=== PATIENT | female | born 1980 | race Caucasian/White ===

== ENCOUNTER 2016-10-29 22:58 | Emergency (ER) | payer BC, OTHER ==
[~2016-10-29] VITALS: Ht 170.2 cm; Wt 89.5 kg
[~2016-10-29 22:58] MED LIST: LRT5 PO; PENI-82 PO
[2016-10-29 23:01] VITALS: TEMP 37; Ht 170.2 cm; Wt 89.5 kg
[2016-10-29] MEDS ORDERED: MoRPHine SULFATE 4 MG/ML 1 ML CARP\\VIAL IV STA (23:16)
[2016-10-29] MEDS ORDERED: ONDANSETRON INJ 2 MG/ML 2 ML VIAL IV STA (23:16)
[2016-10-29] MEDS ORDERED: SODIUM CHLORIDE 0.9% 1000ML 1,000 ML IV STA ×2 (23:16)
[2016-10-29 23:33] VITALS: O2SAT 97
[2016-10-29 23:41] LABS: BASO % 0.2 %; BASO ABS # 0.04 K/uL (0-0.2); COMPLETE YES; EOS % 0.5 %; HEMATOCRIT 42.4 % (37-47); IG% 0.4 %; LYMPH % 19.6 %; LYMPH ABS # 3.62 K/uL (1.2-3.4); MEAN CELL VOLUME 89.5 fL (80-100); MEAN CORPUSCULAR HEMOGLOBIN 30.4 pg (25-34); MEAN PLATELET VOLUME 9.9 fL (7.4-10.4); MONO % 8.4 %; NEUT % 70.9 %; PLATELET COUNT 325 K/uL (130-400); RED BLOOD COUNT 4.74 M/uL (4.2-5.4); WHITE BLOOD COUNT 18.49 K/uL (4.8-10.8)
[2016-10-30 00:01] LABS: BUN/CREATININE RATIO 6.9 (10-20); CALCIUM 9.1 mg/dl (8.5-10.1); POTASSIUM 3.8 mmol/L (3.5-5.1)
[2016-10-30] MEDS ORDERED: OPTIRAY 320 IV PRN (00:45)
[2016-10-30] MEDS ORDERED: HYDROmorphone INJ 1 MG/ML SYR IV STA (00:49)
[2016-10-30 01:55] LABS: URINE APPEARANCE CLEAR (CLEAR); URINE BILIRUBIN NEG (NEG); URINE COLOR YELLOW; URINE NITRITE NEG (NEG); URINE SPECIFIC GRAVITY 1.019 (1.000-1.030); UROBILINOGEN NEG (NEG); ZZUR CULT IF INDIC CLEAN CATCH NO
[2016-10-30 02:09] LABS: MANUAL MICROSCOPIC REQUIRED? NO; REVIEW REQ? NO
--- NOTE | 2016-10-30 02:25 | EMERGENCY ROOM VISIT NOTE ---
History First contact with patient: 23:04 Chief Complaint: ABDOMINAL PAIN Stated Complaint: ABDOMINAL PAIN Nursing Triage Summary: pt co sudden onset severe low abd pain that began one hour prior to arrival. pt states she was laying down and went to stand up and felt sharp pain. pt associates n/v. flaquita diarrhea. reports urinary frequancy "for a couple days, now it feels like I can't pee at all." abd tender in bilateral lower quads. pt rates pain 10/10. pt appears distressed, doubled over in bed. breathing WNL and alert and oriented x4. History of Present Illness The patient is a 36 year old female who presents to the Emergency Room with complaints of sudden onset of severe suprapubic pain described as severe, 10 out of 10 with nausea and vomiting. Nothing makes it better or worse. No history of similar symptoms in the past. Patient complains of urinary symptoms at the past few days. Patient denies chest pain, dyspnea, fever, chills, cough , congestion, back pain, flank pain, vaginal itching or discharge. She is in a monogamous relationship. Patient sees OB at [facility]. Review of Systems See HPI for pertinent positives & negatives. A total of 10 systems reviewed and were otherwise negative. Past Medical/Surgical History Cholecystectomy Social History Smoking Status: Current Every Day Smoker Drug Use: none Marital Status: Housing Status: lives with family Current/Historical Medications No Active Prescriptions or Reported Meds Allergies Coded Allergies: No Known Allergies (Verified , 10/29/16) Physical Exam Vital Signs Date Time Temp Pulse Resp B/P Pulse Ox O2 Delivery O2 Flow Rate FiO2 10/30/16 02:48 73 18 123/82 96 10/30/16 01:16 79 18 136/87 94 Room Air 10/30/16 00:48 80 10/30/16 00:37 87 18 133/78 95 Room Air 10/29/16 23:38 91 18 148/91 93 Room Air 10/29/16 23:33 97 Room Air 10/29/16 23:01 37.0 115 24 164/101 95 Room Air Physical Exam VITALS: Vitals are noted on the nurse's note and reviewed by myself. Vital signs stable. GENERAL: White female who appears in severe amount of pain bent over vomiting SKIN: The skin was without rashes, erythema, edema, or bruising. There is no tenting of the skin. Capillary reflex less than 2 seconds. HEAD: Normocephalic atraumatic. EARS: External auditory canals clear, tympanic membranes pearly barnes without erythema or effusion bilaterally. EYES: Pupils equal round and reactive to light and accommodation. Conjunctivae without injection, sclerae without icterus. Extraocular movements intact. NOSE: Patent, turbinates without inflammation or discharge. MOUTH: Mucous membranes moist. Pharynx without erythema or exudate. Uvula midline. Airway patent. Tongue does not deviate. NECK: Supple without nuchal rigidity. No lymphadenopathy. No thyromegaly. Cervical spine is nontender. No JVD. HEART: Regular rate and rhythm without murmurs gallops or rubs. LUNGS: Clear to auscultation bilaterally without wheezes, rales or rhonchi. No dullness to percussion. No retractions or accessory muscle use. ABDOMEN: Positive bowel sounds x 4. Normal tympanic percussion. Soft, screws a tender to palpation suprapubic area , without masses or organomegaly. no guarding and rebound tenderness exam: Normal external female genitalia, no discharge in the vault, no CMT tenderness, carpet binder present MUSCULOSKELETAL: No muscle atrophy, erythema, or edema noted. NEURO: Patient was alert and oriented to person place and time. Normal sensation to light and sharp touch. No focal neurological deficits. Medical Decision & Procedures Laboratory Results 10/29/16 23:26 Red Blood Count 4.74, Mean Corpuscular Volume 89.5, Mean Corpuscular Hemoglobin 30.4, Mean Corpuscular Hemoglobin Concent 34.0, Mean Platelet Volume 9.9, Neutrophils (%) (Auto) 70.9, Lymphocytes (%) (Auto) 19.6, Monocytes (%) (Auto) 8.4, Eosinophils (%) (Auto) 0.5, Basophils (%) (Auto) 0.2, Neutrophils # (Auto) 13.12, Lymphocytes # (Auto) 3.62, Monocytes # (Auto) 1.55, Eosinophils # (Auto) 0.09, Basophils # (Auto) 0.04 10/29/16 23:26 Test 10/29/16 23:26 10/29/16 23:31 10/30/16 01:13 White Blood Count 18.49 K/uL (4.8-10.8) Red Blood Count 4.74 M/uL (4.2-5.4) Hemoglobin 14.4 g/dL (12.0-16.0) Hematocrit 42.4 % (37-47) Mean Corpuscular Volume 89.5 fL (80-100) Mean Corpuscular Hemoglobin 30.4 pg (25-34) Mean Corpuscular Hemoglobin Concent 34.0 g/dl (32-36) Platelet Count 325 K/uL (130-400) Mean Platelet Volume 9.9 fL (7.4-10.4) Neutrophils (%) (Auto) 70.9 % Lymphocytes (%) (Auto) 19.6 % Monocytes (%) (Auto) 8.4 % Eosinophils (%) (Auto) 0.5 % Basophils (%) (Auto) 0.2 % Neutrophils # (Auto) 13.12 K/uL (1.4-6.5) Lymphocytes # (Auto) 3.62 K/uL (1.2-3.4) Monocytes # (Auto) 1.55 K/uL (0.11-0.59) Eosinophils # (Auto) 0.09 K/uL (0-0.5) Basophils # (Auto) 0.04 K/uL (0-0.2) RDW Standard Deviation 43.5 fL (36.4-46.3) RDW Coefficient of Variation 13.1 % (11.5-14.5) Immature Granulocyte % (Auto) 0.4 % Immature Granulocyte # (Auto) 0.07 K/uL (0.00-0.02) Anion Gap 10.0 mmol/L (3-11) Est Creatinine Clear Calc Drug Dose 88.5 ml/min Estimated GFR () 83.4 Estimated GFR (Non- 71.9 BUN/Creatinine Ratio 6.9 (10-20) Calcium Level 9.1 mg/dl (8.5-10.1) Total Bilirubin 1.1 mg/dl (0.2-1) Direct Bilirubin 0.2 mg/dl (0-0.2) Aspartate Amino Transf (AST/SGOT) 18 U/L (15-37) Alanine Aminotransferase (ALT/SGPT) 30 U/L (12-78) Alkaline Phosphatase 78 U/L (45-117) Total Protein 8.5 gm/dl (6.4-8.2) Albumin 4.2 gm/dl (3.4-5.0) Lipase 112 U/L (73-393) Bedside Lactic Acid Venous 1.23 mmol/L (0.90-1.70) Urine Color YELLOW Urine Appearance CLEAR (CLEAR) Urine pH 6.0 (4.5-7.5) Urine Specific [place] 1.019 (1.000-1.030) Urine Protein NEG (NEG) Urine Glucose (UA) NEG (NEG) Urine Ketones NEG (NEG) Urine Occult Blood TRACE (NEG) Urine Nitrite NEG (NEG) Urine Bilirubin NEG (NEG) Urine Urobilinogen NEG (NEG) Urine Leukocyte Esterase NEG (NEG) Urine WBC (Auto) 0 /hpf (0-5) Urine RBC (Auto) 0-4 /hpf (0-4) Urine Hyaline Casts (Auto) 0 /lpf (0-5) Urine Epithelial Cells (Auto) 5-10 /lpf (0-5) Urine Bacteria (Auto) NEG (NEG) Medications Administered Medications (Trade) Dose Ordered Sig/Kermit Route Start Time Stop Time Status Last Admin Dose Admin Morphine Sulfate (MoRPHine SULFATE INJ) 4 mg NOW STAT IV 10/29/16 23:16 10/29/16 23:18 DC 10/29/16 23:32 4 MG Ondansetron HCl 4 mg 4 mg NOW STAT IV 10/29/16 23:16 10/29/16 23:18 DC 10/29/16 23:30 4 MG Sodium Chloride 1,000 ml @ 999 mls/hr Q1H1M STAT IV 10/29/16 23:16 10/30/16 00:16 DC 10/29/16 23:30 999 MLS/HR Sodium Chloride (Nss 1000ml) 1,000 ml @ 125 mls/hr Q8H STAT IV 10/29/16 23:16 10/30/16 07:15 10/30/16 00:39 125 MLS/HR Hydromorphone HCl (Dilaudid Inj) 1 mg NOW STAT IV 10/30/16 00:49 10/30/16 00:50 DC 10/30/16 01:15 1 MG Oxycodone HCl (Roxicodone Immediate Rel 5MG Home Pack) 1 homepack UD ONCE PO 10/30/16 02:30 10/30/16 02:31 DC 10/30/16 02:41 1 HOMEPACK Ondansetron HCl (ZOFRAN ODT 4MG Home Pack) 1 homepack STK-MED ONCE .ROUTE 10/30/16 02:36 10/30/16 02:37 DC 10/30/16 02:41 1 HOMEPACK Ondansetron HCl (Zofran Inj) 4 mg NOW STAT IV 10/30/16 02:38 10/30/16 02:39 DC 10/30/16 02:40 4 MG ED Course Prior records/ancillary studies reviewed. Triage Nursing notes reviewed. Additional history obtained from family The patient's history was concerning for abdominal pain. Differential diagnosis: Etiologies such as ovarian cyst, ovarian torsion, appendicitis, diverticulitis, PUD, biliary pathology, UTI, pancreatitis, obstruction, mesenteric ischemia, aortic pathology, infections, inflammatory bowel disease, renal colic, as well as others were entertained. Physical examination findings: As above. ER treatment provided: Morphine, Zofran, IV fluids On reassessment the patient felt better. Diagnostics interpreted by me: FAST exam negative for free fluid per my interpretation. The labs revealed leukocytosis, stable H&H Negative hCG, negative urine, negative lactic acid Imaging studies: US PELVIC/ENDOVAG: Compared to CT scan of same day 3.7 x 1.8 cm hypoechoic lesion within the right ovary, 2 adjacent simple cysts versus a single larger septated cyst. Six-week follow-up would be prudent. Recent cyst rupture may account for small amount of free pelvic fluid. There are no sonographic findings of torsion. Left ovary is unremarkable. No abnormal endometrial thickening. Radiologist: Ez Gipson M.D. CT ABDOMEN & PELVIS: Compared to pelvic ultrasound of same date Free fluid in the right paracolic gutter and pelvic cul-de-sac likely due to rupture of a right ovarian cyst, which will be described in greater detail on pelvic ultrasound report. No GI or urinary tract obstruction. Normal appendix. Cholecystectomy. Aortoiliac atherosclerosis is notable for age. Radiologist: Ez Gipson M.D. Exam and history seem consistent with ruptured ovarian cyst. Patient's pain is resolved. She feels much better. She was advised to repeat pelvic ultrasound within a few weeks for resolution of cyst. She was strongly encouraged to return to the ER me for severe sudden onset of pain, vomiting, worsening signs or symptoms or as needed. Patient was asymptomatic and requested to leave. I felt this is reasonable. She was informed that she could be having intermittent torsion of her ovaries and if the pain returns to return to the ER immediately. She verbalized understanding this and was discharged home with her driving. By the evaluation outlined above emergent etiologies such as appendicitis, diverticulitis, PUD, biliary pathology, UTI, pancreatitis, obstruction, mesenteric ischemia, aortic pathology, infections, inflammatory bowel disease, renal colic, as well as others were deemed relatively unlikely. The pt informed about the findings as listed above. All questions were answered and pleased with the treatment. Return instructions were outlined and the patient was discharged in stable condition. Referral: The patient was referred back to their WASHER AND CAPPER MACHINE OPERATOR and primary care physician for follow-up in 2 to 3 days for a recheck of the current condition. Case reviewed with my attending. Medical Decision As above Impression Primary Impression: Ruptured ovarian cyst Departure Information Dispostion Home / Self-Care Condition GOOD Prescriptions No Active Prescriptions or Reported Meds Referrals Gino Lucero III, M.D. (PCP) Patient Instructions My [facility] Additional Instructions DO NOT drive, drink alcohol, operate machinery, or perform dangerous activities today. You were given medications in the ER that can affect your ability to safely function or operate a vehicle. Ibuprofen(Motrin, Advil) may be used for fever or pain. Use 600mg every six hours as needed. Take with food. Avoid using more than 2400mg in a 24 hour period. Do not use 2400mg per day for more than three consecutive days without physician direction. Prolonged inappropriate use can lead to stomach upset or ulcers. (AND/OR) Acetaminophen(Tylenol) may be used for fever or pain. Use 1000mg every six hours as needed. Avoid using more than 3000mg in a 24 hour period. Repeat pelvic ultrasound in 6 weeks for resolution of cyst. Rest and drink plenty of fluids as tolerated. Slow sips of water or sports drinks are recommended instead of large amounts all at once. Continue current medications. Return to the ER immediately for worsening or persistent abdominal pain, vomiting, fevers, chest pains, difficulty breathing, black or bloody stools, worsening of your condition, or as needed. Follow up with your primary physician and WASHER AND CAPPER MACHINE OPERATOR in 2-3 days for a recheck of your current condition.
[2016-10-30] MEDS ORDERED: OXYCODONE IR HOME PACK PO ONE (02:30)
[2016-10-30] MEDS ORDERED: ONDANSETRON HOME PACK 4MG OD TAB ONE (02:36)
[2016-10-30] MEDS ORDERED: ONDANSETRON INJ 2 MG/ML 2 ML VIAL IV STA (02:38)
[2016-10-30] MEDS ORDERED: ONDANSETRON INJ 2 MG/ML 2 ML VIAL ONE (02:39)
[2016-10-30 02:48] VITALS: BP 123/82; PULSE 73; O2SAT 96
--- NOTE | 2016-10-30 06:28 | DIAGNOSTIC IMAGING REPORT ---
EXAMINATION: PELVIC ULTRASOUND CLINICAL HISTORY: severe left pelvic pain, ? Torsion COMPARISON STUDY: FINDINGS: The uterus measured 8.6 cm. The endometrial stripe measured 5 mm. The right ovary measured 4.7 cm include a complex and/or hemorrhagic cyst measuring 3.7 cm. Normal vascular flow. The left ovary measured 3.1 cm with normal vascular flow. There is no ultrasonographic evidence of ovarian torsion. It should be noted that ovarian torsion can be present with normal Doppler ultrasonographic findings. Small to moderate amount of free complex fluid possibly hemorrhagic IMPRESSION: Small amount of complex free fluid within the pelvis as well as a complex cyst involving the right ovary. Possibility of a partial ovarian ruptured considered Electronically signed by: Richard Cotton M.D. 10/30/2016 6:27 AM Dictated Date/Time: 10/30/2016 6:23 AM
--- NOTE | 2016-10-30 07:18 | DIAGNOSTIC IMAGING REPORT ---
ABDOMEN AND PELVIS CT WITH IV CONTRAST CT DOSE: 620.04 mGy.cm HISTORY: severe lower abd pain TECHNIQUE: Multiaxial CT images of the abdomen and pelvis were performed following the use of intravenous contrast. COMPARISON STUDY: Pelvic ultrasound 10/29/2016. FINDINGS: Mild dependent changes seen within the lung bases. Cholecystectomy. Fatty changes within the liver. The spleen, adrenal glands, pancreas, and right kidney are unremarkable. There is a 2 mm hypodense lesion within the lower pole of the left kidney. This is too small to characterize. No hydronephrosis. No retroperitoneal lymphadenopathy. Normal bladder, uterus, left ovary. Trace pelvic free fluid. A 2.2 cm complex cyst within the right ovary. Trace slightly complex fluid within the right paracolic gutter and pelvic cul-de-sac. No bowel wall thickening or obstruction. Normal appendix. Mild calcified plaque within the abdominal aorta and iliac arteries. IMPRESSION: 1. A 2.2 cm complex cyst within the right ovary. There is trace slightly complex fluid within the right paracolic gutter and pelvic cul-de-sac. This may represent a ruptured ovarian cyst. Please refer to the same day pelvic ultrasound for further evaluation. 2. Normal appendix. 3. No bowel wall thickening or obstruction. 4. Hepatic steatosis. 5. Cholecystectomy. Electronically signed by: David Mcghee M.D. 10/30/2016 7:16 AM Dictated Date/Time: 10/30/2016 7:12 AM
== END 2016-10-30 02:48 | disposition home or self-care (01) ==
LOC: C.EDB 22:59 → C.EDA 10-30 02:48
DX: N83.201 Unspecified ovarian cyst, right side (principal); F17.200 Nicotine dependence, unspecified, uncomplicated

== ENCOUNTER 2017-09-11 18:24 | Emergency (ER) | payer BC, OTHER ==
[~2017-09-11] VITALS: Ht 170.2 cm; Wt 79.5 kg
[2017-09-11 18:33] VITALS: Ht 170.2 cm; Wt 79.5 kg
[2017-09-11] MEDS ORDERED: ACETAMINOPHEN 500 MG TAB PO STA (18:37)
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
[2017-09-11] MEDS ORDERED: OXYCODONE IR HOME PACK PO ONE (21:15)
[2017-09-11 21:44] VITALS: BP 132/84; PULSE 80; TEMP 37.2; O2SAT 95
== END 2017-09-11 21:45 | disposition home or self-care (01) ==
LOC: EDBD 18:24 → C.EDA 18:25
DX: S40.022A Contusion of left upper arm, initial encounter (principal); S09.90XA Unspecified injury of head, initial encounter; S16.1XXA Strain of muscle, fascia and tendon at neck level, initial encounter; V03.00XA Pedestrian on foot injured in collision with car, pick-up truck or van in nontraffic accident, initial encounter; Y93.89 Activity, other specified; Y99.8 Other external cause status; F17.200 Nicotine dependence, unspecified, uncomplicated